=== PATIENT | female | born 1945 | race Caucasian/White ===

== ENCOUNTER 2017-07-02 09:11 | Day surgery (SDC) | payer MEDICARE, BC ==
[~2017-07-02 09:11] MED LIST: FAMOTIDINE 20MG TABLET PO ONE; MECLIZINE 25 MG TABLET PO ONE; METOCLOPRAMIDE 10 MG TABLET PO ONE
[2017-07-02] MEDS ORDERED: PROPOFOL 10 MG/ML VIAL IV ONE (09:12)
[2017-07-02] MEDS ORDERED: DEXAMETHASONE PRESERVATIVE FREE 10MG/ML VIAL IV ONE (09:12)
[2017-07-02] MEDS ORDERED: BUPIVACAINE 0.5% W/EPI MPF 30 ML VIAL IVP ONE (09:12)
[2017-07-02] MEDS ORDERED: MIDAZOLAM HCL 2MG/2ML VIAL IV ONE (09:12)
[2017-07-02] MEDS ORDERED: *PACU ONLY* KETAMINE HCL 10 MG/ML (20ML) VIAL IV ONE (09:12)
[2017-07-02] MEDS ORDERED: FENTANYL PF 100MCG/2ML VIAL IV ONE (09:12)
[2017-07-02] MEDS ORDERED: LIDOCAINE 2% MDV (20MG/ML) 20ML VIAL IV ONE (09:12)
[2017-07-02] MEDS ORDERED: LIDOCAINE 1% W/EPI 1:200,000 MPF 30ML SQ ONE (09:12)
--- NOTE | 2017-07-02 20:09 | Operative Note - Ferro ---
DATE OF SURGERY: 07/02/17. PREOPERATIVE DIAGNOSIS: CERVICAL SPONDYLOSIS WITHOUT MYELOPATHY, ICD-10 CODE = M47.812. SURGERY: RADIOFREQUENCY RHIZOTOMY BILATERAL CERVICAL FACETS 5-6 and 6-7. SURGEON: BRANT IRENE D.O. ANESTHESIA: LOCAL SEDATION. ANESTHESIA PROVIDER: DAT WILLS CRNA INDICATION: This patient presents with primary neck pain. Examination shows tenderness in the cervical spine. Range of motion does causes pain in the neck with extension. Diagnostics studies show multiple levels of spondylosis. A facet series at 4-5 to 6-7 with 75-85% pain control. Due to the failure of therapy and the success of the facet series, the patient presents today for rhizotomy for more long-term relief. Insurance authorization has only been for the 5-6 and 6-7 levels. SURGERY: Intravenous line, vital sign monitoring, IV sedation, prepped, draped , sterile technique. The cervical facets at 5-6 and 6-7 identified and marked bilaterally. Skin infiltrated. A #22 gauge rhizotomy cannula positioned. Stimulation trials conducted. Rhizotomy burn performed. Local with anti- inflammatory into the sites. Topical antibiotics. Sterile dressing applied. We will monitor and evaluate. cc: Dr. Karime Grey JOB NUMBER: [id number] [facility]
== END 2017-07-02 10:56 | disposition home or self-care (01) ==
LOC: SUR 09:11
PROVIDERS: ATTEND Pain Medicine Interventional Pain Medicine
DX: M47.812 Spondylosis without myelopathy or radiculopathy, cervical region (principal); I10 Essential (primary) hypertension; E11.9 Type 2 diabetes mellitus without complications; E78.00 Pure hypercholesterolemia, unspecified
CPT/HCPCS: 64633; 64634; 01936; J1100; J3010

== ENCOUNTER 2018-01-30 11:10 | Day surgery (SDC) | payer MEDICARE, BC ==
--- NOTE | 2018-01-29 09:05 | History and Physical - Ferro ---
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 On 11/20/17 a spinal cord stimulator trial was conducted with 75-85% pain control. Due to the failure of therapy and the success of the stimulator trial, the patient presents today for implantation of a permanent system. PAST MEDICAL HISTORY: Hypothyroidism and hypertension. PAST SURGICAL HISTORY: Lumbar spinal surgery. MEDICATIONS ON ADMISSION: List to be provided. ALLERGIES: PENICILLIN. FAMILY/PSYCHOSOCIAL HISTORY: Social history - Caffeine. Family history - Thyroid disease, diabetes, coronary artery disease, and hypertension. SYSTEMS REVIEW: The patient is appropriate in no acute distress. The remainder of the systems review is positive for glasses and degenerative arthritis. PHYSICAL EXAMINATION: Height and weight are not known. Vital signs - Blood pressure is 140/80. HEENT: Within normal limits. LUNGS: Clear. HEART: Regular rate and rhythm. ABDOMEN: Nontender. MUSCULOSKELETAL: Examination of the musculoskeletal system shows diffuse tenderness in the lumbar spine adjacent to the laminectomy scar. Range of motion produces pain into both legs across the front and back surface. Motor and sensory field function shows mild weakness in both legs. NEUROLOGIC: Cranial nerves are intact. 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 PLAN: Due to the failure of all therapies and the success of the stimulator trial, the patient presents today for implantation of a permanent system. The procedure will be considered outpatient, although an overnight stay will be evaluated. JOB NUMBER: [id number] MTDD
[~2018-01-30 11:10] MED LIST changes: +ACETAMINOPHEN 1,000 MG/100 ML BTL IV ONE; +CLINDAMYCIN 600MG/50ML PREMIX 600 MG/50 ML BAG IVPB ONE
[2018-01-30] MEDS ORDERED: CLINDAMYCIN (PEDIATRIC DOSING) 150 MG/ML VIAL IVPB ONE (11:11)
[2018-01-30] MEDS ORDERED: FENTANYL PF 100MCG/2ML VIAL IV ONE (11:11)
[2018-01-30] MEDS ORDERED: ONDANSETRON HCL IV 4 MG/2 ML VIAL IVP ONE (11:11)
[2018-01-30] MEDS ORDERED: LIDOCAINE 2% MDV (20MG/ML) 20ML VIAL IV ONE (11:11)
[2018-01-30] MEDS ORDERED: PROPOFOL 10 MG/ML VIAL IV ONE (11:11)
[2018-01-30] MEDS ORDERED: HYDROMORPHONE HCL 2 MG/ML VIAL IV ONE (11:11)
[2018-01-30] MEDS ORDERED: MIDAZOLAM HCL 2MG/2ML VIAL IV ONE (11:11)
[2018-01-30] MEDS ORDERED: BUPIVACAINE 0.5% W/EPI MPF 30 ML VIAL IVP ONE (11:11)
[2018-01-30] MEDS ORDERED: LIDOCAINE 1% W/EPI 1:200,000 MPF 30ML SQ ONE (11:11)
--- NOTE | 2018-01-31 12:00 | Operative Note ---
DATE OF SURGERY: 01/30/2018. PREOPERATIVE DIAGNOSIS: 1. POSTLUMBAR LAMINECTOMY RADICULOPATHY, ICD-10 CODE M96.1. 2. LUMBAR RADICULITIS, ICD-10 CODE M54.16 AND M54.17. OPERATION: 1. Fluoroscopically guided epidural access at left T10-11. Placement of spinal cord stimulator lead 1, a [employer] Infineon 16 with 16 electrodes, positioned left T7. 2. Fluoroscopically guided epidural access at left T11-12. Placement of spinal cord stimulator lead 2, a [employer] Infineon 16 with 16 electrodes, positioned right T7. 3. Complex programming of lead 1 over 20 minutes followed by complex programming of lead 2 over 20 minutes. 4. Incision, subcutaneous dissection, and anchoring of lead 1 and lead 2 to the supraspinous fascia using a [employer] locking anchor. 5. Incision, subcutaneous dissection, and creation of subcutaneous pouch at right flank for generator identified as [employer], programmable rechargeable WaveWriter. 6. Tunneling between pouches. Placement of external portion of lead 1 and lead 2 into generator pouch, each lead interfaced to the generator. 7. Placement of generator pouch. Placement of leads into pouch. 8. Closure of both incisions using Stratafix suture, #2-0 for the fascia and #3 -0 for the skin. Dermabond closure. 9. Complex recovery room programming of the internal generator for home use, two stimulators, for 20 minutes. SURGEON: Armando Longo D.O. ANESTHESIA: Local sedation. ANESTHESIA PROVIDER: Lamberto Muñiz CRNA. INDICATION: This patient presents with a history of intractable postlaminectomy radiculopathy. Her diagnostic studies showed decompression laminectomy from T12 through L5. A spinal cord stimulator trial was conducted with greater than 75 percent pain control. Due to the failure of therapy and the success of the trial, the patient presents today for implantation of a permanent system. DESCRIPTION OF PROCEDURE: Intravenous lines, vital sign monitoring, and intravenous sedation. Prepped and draped with sterile technique. Under imaging , the epidural interspaces on the left at 11-12 and 10-11 were marked and infiltrated. Separate curved-access Epimed needles were positioned with loss of resistance. At 10-11 spinal cord stimulator lead 1, a [employer] Infineon 16 with 16 electrodes, was positioned left at T7. With the epidural access at 11-12, spinal cord stimulator lead 2, also a [employer] Infineon 16 with 16 electrodes, was positioned right at T7. Complex programming of lead 1 over 20 minutes was followed by complex programming of lead 2 over 20 minutes. This resulted in complete patterns of stimulation across the back and into the legs. The patient indicated we were in all of the areas of the pain. The skin below both needles was infiltrated. An incision was made and subcutaneous dissection was conducted to the supraspinous fascia. The needle was removed and each lead was anchored to the supraspinous fascia with a [employer] locking anchoring device and nonabsorbable suture. At the right flank, the site picked by the patient for the [employer] programmable rechargeable WaveWriter generator, the skin was infiltrated. An incision was made and subcutaneous dissection was conducted to form a pouch of suitable size and depth for the generator. A tunneling tool was used to carry the leads into the generator pouch, and then each lead was interfaced to the generator. Antibiotic irrigation and Bovie for hemostasis. The generator and leads were placed into the pouch. The incisions were then closed using Stratafix suture, # 2-0 for the fascia and #3-0 for the skin. A Dermabond closure system was used to approximate the edges of the wounds. The patient was then transported to the recovery room stable, showing no side effects from the procedure or the sedation. When fully awake and alert, complex programming was performed, re-establishing stimulation and pain control to all of the appropriate areas. The patient was instructed on the use of the system and was provided with information. By her request she was then prepared for discharge. DISCHARGE INSTRUCTIONS: 1. The sites are to remain clean and dry. She may shower but may not sit in water. No showering or bathing in any way that would disrupt the dressings. If this happens, contact the clinic. 2. Standard medications to be resumed including Levaquin the antibiotic 500 mg once a day for 14 days. 3. The office will contact the patient at home in the next 48 to 72 hours to set up an appointment to be seen seven to ten days to evaluate the sites. Until then, her activities should stay low. JOB NUMBER: [id number] cc: Dov Bocanegra
--- NOTE | 2018-02-02 10:44 | RADIOLOGY REPORT ---
EXAM: AP LUMBAR SPINE HISTORY: SPINAL CORD STIMULATOR IMPLANT. TECHNIQUE: A single AP view of the spine was obtained extending from about the level of the T4 down to about the left of the L3-L4 interspace. Comparison: None. FINDINGS: There is a battery pack overlying the right mid abdomen presumably representing the spinal cord stimulator generator pack. Catheter/wires extend from this to overlie the spine at about the T12 level and ascend up to the presumed T6-T7 interspace level. Hypertrophic spurring in the thoracic and lumbar spine. There may have been extensive laminectomy in the lumbar spine and correlation with the surgical history is suggested. IMPRESSION: STIMULATOR WIRES EXTEND UP TO THE LEVEL OF THE PRESUMED T6-T7 INTERSPACE. JOB NUMBER: [id number] MTDD
== END 2018-01-30 14:50 | disposition home or self-care (01) ==
LOC: SUR 11:10
PROVIDERS: ATTEND Pain Medicine Interventional Pain Medicine
DX: M96.1 Postlaminectomy syndrome, not elsewhere classified (principal); M54.16 Radiculopathy, lumbar region; M54.17 Radiculopathy, lumbosacral region; I10 Essential (primary) hypertension; E11.9 Type 2 diabetes mellitus without complications; E78.00 Pure hypercholesterolemia, unspecified; E03.9 Hypothyroidism, unspecified; J45.909 Unspecified asthma, uncomplicated; K21.9 Gastro-esophageal reflux disease without esophagitis
CPT/HCPCS: 63650; 63685; 01936; 95972; 72020; J2405; J3010; J1170; C1820; C1883